=== PATIENT | male | born 1945 | race Caucasian/White ===

== ENCOUNTER 2017-06-10 10:27 | Day surgery (SDC) | payer OTHER, MEDICARE ==
[~2017-06-10 10:27] MED LIST: ACETAMINOPHEN 325 MG TABLET PO PRN; ACETYLCHOLINE CHLORIDE 20 DROP KIT IO PRN; BUPIVACAINE HCL/PF 30 ML VIAL IJ PRN; CYCLOPENTOLATE HCL 20 DROP BTL RIGHTEYE PRN; DEXTROSE 5%-0.5 NORMAL SALINE 1,000 ML IV PRN; EPINEPHrine 1 MG/ML AMPUL IO PRN; HYALURONATE SODIUM 0.4 ML DISP.SYRIN IO PRN; HYALURONATE SODIUM 0.85 ML DISP.SYRIN IO PRN; LIDOCAINE HCL/PF 200 MG/5 ML AMPUL TP PRN; LIDOCAINE HCL/PF 5 ML VIAL IO PRN; NORMAL SALINE 3 ML BOX IV PRN; TETRACAINE HCL 150 DROP BTL OP PRN
[2017-06-10] MEDS: TROPICAMIDE 150 DROP BTL RIGHTEYE PRN ×3 (10:53→11:25)
[2017-06-10] MEDS: PHENYLEPHRINE HCL 50 DROP BTL RIGHTEYE PRN ×3 (10:53→11:25)
[2017-06-10 13:21] VITALS: BP 122/78
== END 2017-06-10 10:28 | disposition home or self-care (01) ==
LOC: AMB 10:27
PROVIDERS: ATTEND Ophthalmology
PROC: 08RJ3JZ Replacement of Right Lens with Synthetic Substitute, Percutaneous Approach (ICD-10-PCS; principal; 2017-06-10 11:45)
DX: H26.8 Other specified cataract (principal); I12.9 Hypertensive chronic kidney disease with stage 1 through stage 4 chronic kidney disease, or unspecified chronic kidney disease; N18.3 Chronic kidney disease, stage 3 (moderate); E78.5 Hyperlipidemia, unspecified; Z68.27 Body mass index [BMI] 27.0-27.9, adult

== ENCOUNTER 2017-06-24 11:44 | Day surgery (SDC) | payer OTHER, MEDICARE ==
[~2017-06-24 11:44] MED LIST changes: +CYCLOPENTOLATE HCL 20 DROP BTL LEFTEYE PRN; -CYCLOPENTOLATE HCL 20 DROP BTL RIGHTEYE PRN
[2017-06-24] MEDS: PHENYLEPHRINE HCL 50 DROP BTL LEFTEYE PRN ×3 (12:33→12:53)
[2017-06-24] MEDS: TROPICAMIDE 150 DROP BTL LEFTEYE PRN ×3 (12:33→12:53)
[2017-06-24] MEDS ORDERED: DEXTROSE 5%-0.5 NORMAL SALINE 1,000 ML IV ONE (12:47)
[2017-06-24 16:27] VITALS: BP 136/91
== END 2017-06-24 11:45 | disposition home or self-care (01) ==
LOC: AMB 11:44
PROVIDERS: ATTEND Ophthalmology
PROC: 08RK3JZ Replacement of Left Lens with Synthetic Substitute, Percutaneous Approach (ICD-10-PCS; principal; 2017-06-24 12:40)
DX: H26.8 Other specified cataract (principal); I12.9 Hypertensive chronic kidney disease with stage 1 through stage 4 chronic kidney disease, or unspecified chronic kidney disease; N18.3 Chronic kidney disease, stage 3 (moderate); E78.5 Hyperlipidemia, unspecified; Z68.27 Body mass index [BMI] 27.0-27.9, adult